=== PATIENT | male | born 1995 | race African-American/Black ===

== ENCOUNTER 2017-05-14 17:36 | Emergency (ER) | payer OTHER ==
[~2017-05-14] VITALS: Ht 167.6 cm; Wt 59.0 kg
[~2017-05-14 17:36] MED LIST: PYRIDIUM200 MG PO
[2017-05-14 19:06] LABS: HEMATOCRIT 48.2 % (38.0-50.0); MCH 31.5 PG (29.0-34.0); MCHC 34.6 G/DL (30.0-36.0); MCV 90.8 FL (86-99); RBC DIS.WIDTH-CV 12.1 % (11.8-14.6); RBC DIS.WIDTH-SD 40.4 % (39-53); RED BLOOD COUNT 5.31 M/uL (4.00-5.50); WHITE BLOOD COUNT 9.2 K/uL (4.1-10.2)
[2017-05-14 19:21] LABS: CHLORIDE 104 mEq/L (99-109); POTASSIUM 3.9 mEq/L (3.7-5.4); SODIUM 147 mEq/L (136-147)
[2017-05-14 19:23] LABS: GLUCOSE 100 mg/dL (70-99)
[2017-05-14 19:24] LABS: ANION GAP 15 MEQ/L (2-14)
[2017-05-14 19:25] LABS: TOTAL BILIRUBIN 0.6 mg/dL (0.0-1.0)
[2017-05-14 19:26] LABS: ALKALINE PHOSPHATASE 78 IU/L (3-129)
[2017-05-14 19:27] LABS: GFR ESTIMATE (CALCULATED) > 59 mL/min/
[2017-05-14 19:28] LABS: UREA NITROGEN (BUN) 14 mg/dL (9-23)
[2017-05-14 20:14] LABS: ADD MIUA? YES; BILIRUBIN NEGATIVE; BLOOD NEGATIVE; COLOR YELLOW ((YELLOW)); GLUCOSE (STRIP) NEGATIVE; KETONES NEGATIVE; LEUKOCYTES NEGATIVE; NITRITE NEGATIVE; PROTEIN (STRIP) 100; SPECIFIC GRAVITY 1.025 (1.000-1.030); UROBILINOGEN 0.2 MG/DL (0.2-1.0)
[2017-05-14 20:29] LABS: BACTERIA NONE SEEN /HPF; EPITHELIAL CELLS RARE /HPF; MUCUS 3+ /LPF; RED BLOOD CELLS 0-5 /HPF (0-5); UCUL ADDED? NO; WHITE BLOOD CELLS 0-5 /HPF (0-5)
[2017-05-14 20:34] LABS: PLAT.SUFFICIENCY ADEQUATE; PLATELET CLUMPS PRESENT - PLATELET COUNT APPEARS ADQ.; PLATELET COUNT UNABLE TO REPORT K/uL (156-360)
[2017-05-14] MEDS ORDERED: ZOFRAN ODT4 MG PO (22:05)
[2017-05-14 22:38] VITALS: BP 110/63
== END 2017-05-14 22:39 | disposition home or self-care (01) ==
LOC: EME 17:36
DX: K29.20 Alcoholic gastritis without bleeding (principal); F17.200 Nicotine dependence, unspecified, uncomplicated
CPT/HCPCS: 80053; 81003; 85027; 99281; 99284; J2405; J7030; S0028

== ENCOUNTER 2017-10-05 01:16 | Emergency (ER) | payer OTHER ==
[~2017-10-05] VITALS: Ht 167.6 cm; Wt 61.6 kg
[~2017-10-05 01:16] MED LIST changes: +ZOFRAN ODT4 MG PO
[2017-10-05] MEDS ORDERED: PEN-VEE K,VEET500 MG PO (02:40)
[2017-10-05] MEDS ORDERED: NORCO 5/3251 TABLET PO (02:40)
[2017-10-05 02:55] VITALS: BP 122/80
== END 2017-10-05 02:56 | disposition home or self-care (01) ==
LOC: EME 01:16
PROC: 3E0T3BZ Introduction of Anesthetic Agent into Peripheral Nerves and Plexi, Percutaneous Approach (ICD-10-PCS; principal; 2017-10-05)
DX: S16.1XXA Strain of muscle, fascia and tendon at neck level, initial encounter (principal); K08.89 Other specified disorders of teeth and supporting structures; S00.93XA Contusion of unspecified part of head, initial encounter; W00.0XXA Fall on same level due to ice and snow, initial encounter
CPT/HCPCS: 99281; 99284

== ENCOUNTER 2017-10-11 21:48 | Emergency (ER) | payer OTHER ==
[~2017-10-11] VITALS: Ht 167.6 cm; Wt 61.5 kg
[~2017-10-11 21:48] MED LIST changes: +NORCO 5/3251 TABLET PO; +PEN-VEE K,VEET500 MG PO
[2017-10-11] MEDS ORDERED: PREDNISONE20 MG PO (23:33)
[2017-10-11] MEDS ORDERED: MOTRIN800 MG PO (23:33)
[2017-10-11] MEDS ORDERED: MUCINEX D ER T1 EACH PO (23:43)
[2017-10-12 00:01] VITALS: BP 134/71
== END 2017-10-12 00:01 | disposition home or self-care (01) ==
LOC: RME 21:48 → EME 21:48 → RME 10-12 00:01
DX: K08.89 Other specified disorders of teeth and supporting structures (principal); H60.92 Unspecified otitis externa, left ear; H65.91 Unspecified nonsuppurative otitis media, right ear
CPT/HCPCS: 99281; 99284; J1885; J7512

== ENCOUNTER 2017-10-25 10:22 | Emergency (ER) | payer OTHER ==
[~2017-10-25] VITALS: Ht 167.6 cm; Wt 62.2 kg
[~2017-10-25 10:22] MED LIST changes: +MOTRIN800 MG PO; +MUCINEX D ER T1 EACH PO; +PREDNISONE20 MG PO
[2017-10-25] MEDS ORDERED: CIPRO HC OTIC S10 ML LEFT EAR (11:27)
[2017-10-25] MEDS ORDERED: TYLENOL WITH C1 EACH PO (11:29)
[2017-10-25 12:23] VITALS: BP 136/86
== END 2017-10-25 12:24 | disposition home or self-care (01) ==
LOC: EME 10:22
DX: K08.89 Other specified disorders of teeth and supporting structures (principal); H60.92 Unspecified otitis externa, left ear; F17.200 Nicotine dependence, unspecified, uncomplicated
CPT/HCPCS: 99281; 99284

== ENCOUNTER 2017-11-01 22:13 | Emergency (ER) | payer OTHER ==
[~2017-11-01] VITALS: Ht 167.6 cm; Wt 61.4 kg
[~2017-11-01 22:13] MED LIST changes: +CIPRO HC OTIC S10 ML LEFT EAR; +TYLENOL WITH C1 EACH PO
[2017-11-01] MEDS ORDERED: CLINDAMYCIN HC300 MG PO (23:46)
[2017-11-01] MEDS ORDERED: MOTRIN800 MG PO (23:46)
[2017-11-01] MEDS ORDERED: LIDOCAINE20 MG/1 M5 PO (23:46)
[2017-11-02 00:17] VITALS: BP 116/88
== END 2017-11-02 00:19 | disposition home or self-care (01) ==
LOC: EME 22:13
DX: K02.9 Dental caries, unspecified (principal); F17.200 Nicotine dependence, unspecified, uncomplicated
CPT/HCPCS: 99281; 99284; J1885

== ENCOUNTER 2017-11-05 15:12 | Emergency (ER) | payer OTHER ==
[~2017-11-05] VITALS: Ht 167.6 cm; Wt 61.0 kg
[~2017-11-05 15:12] MED LIST changes: +CLINDAMYCIN HC300 MG PO; +LIDOCAINE20 MG/1 M5 PO
[2017-11-05] MEDS ORDERED: NAPROSYN500 MG PO (16:31)
[2017-11-05] MEDS ORDERED: TYLENOL WITH C1 EACH PO (17:17)
[2017-11-05 18:16] VITALS: BP 128/65
== END 2017-11-05 18:17 | disposition home or self-care (01) ==
LOC: EME 15:12
PROC: 3E0T3BZ Introduction of Anesthetic Agent into Peripheral Nerves and Plexi, Percutaneous Approach (ICD-10-PCS; principal; 2017-11-05)
DX: K02.9 Dental caries, unspecified (principal); K01.1 Impacted teeth; F17.200 Nicotine dependence, unspecified, uncomplicated
CPT/HCPCS: 99281; 99284; J1885